=== PATIENT | female | born 1970 | race African-American/Black ===

== ENCOUNTER 2019-05-30 10:45 | Inpatient (IN) | payer OTHER ==
[~2019-05-30] VITALS: Ht 165.1 cm; Wt 145.2 kg
[2019-05-30 12:13] LABS: Basophils # (auto) 0.1 uL; Eosinophils # (auto) 0 uL; Lymphocytes # (auto) 0.8 uL; Monocytes # (auto) 0.4 uL; Neutrophils # (auto) 2.9 uL; White Blood Cell 4.2 10^3/uL (4.4-10.8)
[2019-05-30 12:14] LABS: Basophils % (auto) 1.3 % (0.0-2.0); Eosinophils % (auto) 0.2 % (0.0-7.0); Hemoglobin 18.3 g/dL (12.2-16.2); Lymphocytes % (auto) 18.2 % (10.0-50.0); Mean Corpuscular Hemoglobin 27.1 pg (28.0-32.0); Mean Corpuscular Hgb Conc. 31.8 g/dL (32.0-36.0); Mean Corpuscular Volume 85.3 fL (80.0-100.0); Monocytes % (auto) 10.1 % (0.0-12.0); Neutrophils % (auto) 70.2 % (37.0-80.0); Nucleated Red Blood Cells % 0.3 %; Platelet Count (auto) 204 10^3/uL (140-450); Red Blood Cells 6.73 10^6/uL (4.0-5.20)
[2019-05-30] MEDS ORDERED: FUROSEMIDE 40 MG/4 ML VIAL IV ONE ×2 (12:15→14:30)
[2019-05-30] MEDS ORDERED: cloNIDine HCL 0.1 MG TAB PO ONE (12:15)
[2019-05-30 12:38] LABS: Alanine Aminotransferase 32 U/L (13-56); Anion Gap 4 (5-15); Aspartate Aminotransferase 37 U/L (15-37); BUN/Creatinine Ratio 16.8; Blood Urea Nitrogen 16 mg/dL (7-18); Calcium 8.5 mg/dL (8.5-10.1); Carbon Dioxide 36 mmol/L (21-32); Chloride 103 mmol/L (98-107); GFR African American 80 mL/min; GFR Non-African American 66 mL/min; Glucose 95 mg/dL (74-106); Potassium 3.5 mmol/L (3.5-5.1); Sodium 143 mmol/L (136-145)
[2019-05-30 12:43] LABS: Alkaline Phosphatase 64 U/L (45-117); Bilirubin, Total 2.2 mg/dL (0.2-1.0); Total Protein 6.7 g/dL (6.4-8.2)
[2019-05-30 13:06] LABS: Hematocrit 57.4 % (36.0-46.0); INR 1.32 (0.9-1.15); Partial Thromboplastin Time 29.8 sec (23.64-32.05)
[2019-05-30] MEDS ORDERED: LABETALOL HCL 5 MG/ML ML 20ML VIAL IV PRN (14:15)
[2019-05-30] MEDS ORDERED: NITROGLYCERIN 0.4 MG SL TAB SL PRN ×2 (14:15)
[2019-05-30] MEDS ORDERED: MORPHINE SULF INJ 2 MG/ML SYRINGE 1ML IV PRN ×2 (14:15)
[2019-05-30] MEDS ORDERED: CARVEDILOL 3.125 MG TAB PO ONE (14:30)
[2019-05-30] MEDS ORDERED: BENAZEPRIL HCL 10 MG TAB PO ONE (14:30)
[2019-05-30 18:30] VITALS: BP 139/98
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
--- NOTE | 2019-05-30 18:42 | NUR ---
Tele box #50 on.
[2019-05-30 18:44] VITALS: BP 153/88
--- NOTE | 2019-05-30 19:35 | NUR ---
Opening Shift Note Assumed care of patient, awake and alert. On O2 at 5 Lpm/NC, family at bedside. Updated on POC and to be NPO after MN, for stress test tomorrow. Instructed to limit OFI to 1200 ml, patient verbalized understanding. Bed in lowest and locked position, call light within reach, will continue to monitor for changes Q1hr and PRN.
[2019-05-30 22:00] VITALS: BP 100/70
[2019-05-30] MEDS: CARVEDILOL 3.125 MG TAB PO SCH (22:00)
[2019-05-30] MEDS: ATORVASTATIN 20 MG TAB PO SCH (22:07)
[2019-05-31 05:00] VITALS: BP 137/73
--- NOTE | 2019-05-31 05:14 | NUR ---
IV insertion IV access obtained, via clean sterile technique by inserting 20 gauge catheter at RW after [1] attempt(s). IV secured properly. No trauma to site. Patient tolerated well. NOTE: []
[2019-05-31 05:49] LABS: Basophils # (auto) 0 uL; Eosinophils # (auto) 0.1 uL; Eosinophils % (auto) 1.3 % (0.0-7.0); Hematocrit 58.2 % (36.0-46.0); Hemoglobin 17.7 g/dL (12.2-16.2); Lymphocytes # (auto) 0.8 uL; Lymphocytes % (auto) 21.4 % (10.0-50.0); Mean Corpuscular Hemoglobin 26.5 pg (28.0-32.0); Mean Corpuscular Hgb Conc. 30.4 g/dL (32.0-36.0); Mean Corpuscular Volume 87.1 fL (80.0-100.0); Monocytes # (auto) 0.5 uL; Neutrophils # (auto) 2.5 uL; Neutrophils % (auto) 64.3 % (37.0-80.0); Nucleated Red Blood Cells % 0.3 %; Platelet Count (auto) 182 10^3/uL (140-450); Red Blood Cells 6.69 10^6/uL (4.0-5.20); Red Cell Distribution Width 15.5 % (11.8-14.3); White Blood Cell 3.9 10^3/uL (4.4-10.8)
[2019-05-31 06:07] LABS: Potassium 4.2 mmol/L (3.5-5.1)
[2019-05-31 06:17] LABS: Albumin 2.8 g/dL (3.4-5.0); BUN/Creatinine Ratio 16.5; Bilirubin, Total 1.8 mg/dL (0.2-1.0); Calcium 8.5 mg/dL (8.5-10.1); Magnesium 1.8 mg/dL (1.6-2.6); Total Protein 6.8 g/dL (6.4-8.2)
--- NOTE | 2019-05-31 08:00 | NUR ---
OPENING SHIFT NOTE ASSUMED CARE OF PATIENT. PATIENT ALERT AND AWAKE IN BED. NO SIGNS OF SOB OR DISTRESS. INSTRUCTED OF POC AND TO CALL FOR ASSISTANCE PRN. BED IN LOWEST POSITION. SIDE RAILS UP X2. WILL CONTINUE TO MONITOR.
[2019-05-31 09:00] VITALS: BP 131/98
[2019-05-31] MEDS: BENAZEPRIL HCL 10 MG TAB PO SCH (09:30)
[2019-05-31 12:30] VITALS: BP 135/91
--- NOTE | 2019-05-31 12:30 | NUR ---
EXTREMITY VENOUS STUDY PERFORMED. AWAITING RESULTS.
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
--- NOTE | 2019-05-31 14:28 | NUR ---
1425 05/31/19 I received a call from Nicole at [facility], she said inpatient stay is authorized through today-if they do want to pursue a transfer back in network when patient is stable, she would most likely go to [facility] in [place]-to follow up tomorrow regarding further authorization and possibility for transferring back in network.
--- NOTE | 2019-05-31 15:30 | NUR ---
PT RETURNED FROM STRESS TEST. WILL CONTINUE WITH STRESS TEST ON 06/01 IN THE AM.
[2019-05-31] MEDS: FUROSEMIDE 40 MG/4 ML VIAL IV SCH (16:20)
[2019-05-31] MEDS: CARVEDILOL 3.125 MG TAB PO SCH ×2 (16:21→21:50)
[2019-05-31 16:58] VITALS: BP 137/96
--- NOTE | 2019-05-31 19:50 | NUR ---
Opening Shift Note Assumed care of patient, awake and alert. No S/S of distress/SOB or pain. Patient has nasal canula with 3L runnin Instructed on POC and to call for assist PRN, will continue to monitor for changes Q1hr and PRN. Family at bedside.
[2019-05-31 21:33] VITALS: BP 118/75
[2019-05-31] MEDS: ATORVASTATIN 20 MG TAB PO SCH (21:50)
[2019-05-31] MEDS ORDERED: ENOXAPARIN SOD 40 MG/0.4 ML SYRINGE SC ONE (22:15)
--- NOTE | 2019-06-01 | NUR ---
Patient NPO Removed all fluids from patient's bedside.
[2019-06-01 05:50] VITALS: BP 97/55
[2019-06-01 06:01] LABS: Basophils # (auto) 0 uL; Eosinophils # (auto) 0 uL; Eosinophils % (auto) 0.9 % (0.0-7.0); Hemoglobin 17.7 g/dL (12.2-16.2)
[2019-06-01 06:10] LABS: Basophils % (auto) 0.9 % (0.0-2.0); Lymphocytes # (auto) 0.9 uL; Lymphocytes % (auto) 18.8 % (10.0-50.0); Mean Corpuscular Hemoglobin 26.8 pg (28.0-32.0); Mean Corpuscular Hgb Conc. 30.7 g/dL (32.0-36.0); Mean Corpuscular Volume 87.2 fL (80.0-100.0); Monocytes # (auto) 0.4 uL; Monocytes % (auto) 8.5 % (0.0-12.0); Neutrophils # (auto) 3.4 uL; Neutrophils % (auto) 70.9 % (37.0-80.0); Nucleated Red Blood Cells % 0.4 %; Platelet Count (auto) 191 10^3/uL (140-450); Red Blood Cells 6.61 10^6/uL (4.0-5.20); White Blood Cell 4.8 10^3/uL (4.4-10.8)
[2019-06-01 06:20] LABS: Calcium 8.5 mg/dL (8.5-10.1); Potassium 4.1 mmol/L (3.5-5.1)
[2019-06-01 06:24] LABS: BUN/Creatinine Ratio 19.4; Hematocrit 57.6 % (36.0-46.0)
--- NOTE | 2019-06-01 07:44 | NUR ---
OPENING SHIFT NOTE ASSUMED CARE OF PATIENT. PATIENT AWAKE IN BED AND ALERT AND ORIENTED. NO SIGNS OF SOB OR DISTRESS. OXYGEN SET AT 3L VIA. INSTRUCTED OF POC AND TO CALL FOR ASSISTANCE PRN. BED IN LOWEST POSITION. SIDE RAILS UP X2. WILL CONTINUE TO MONITOR.
[2019-06-01] MEDS ORDERED: ADENOSINE 98 MG in GIVE UN-DILUTED 0 ML IV STA (08:16)
[2019-06-01 09:00] VITALS: BP 129/68
[2019-06-01] MEDS: CARVEDILOL 3.125 MG TAB PO SCH ×2 (09:31→21:17)
[2019-06-01] MEDS: BENAZEPRIL HCL 10 MG TAB PO SCH (09:32)
[2019-06-01] MEDS ORDERED: ENOXAPARIN SOD 40 MG/0.4 ML SYRINGE SC SCH ×2 (10:00→22:00)
[2019-06-01] MEDS ORDERED: ENOXAPARIN SOD 60 MG/0.6 ML SYRINGE SC ONE (10:30)
[2019-06-01] MEDS ORDERED: IOHEXOL 300 MG/ML 100ML BOTTLE IJ ONE (10:32)
[2019-06-01] MEDS ORDERED: IOHEXOL 350 MG/ML 100ML IJ ONE (10:33)
--- NOTE | 2019-06-01 11:38 | NUR ---
1130 06/01/19 I called [facility] [phone] and spoke with Nicole to let her know that there is an order to transfer this patient back in [facility]-faxed to [phone]. She will speak with the [facility] transfer center and let me know if they want to transfer this patient. If patient is not transferred, inpatient authorization continues. Bulldozer Mechanic Nicole to give me a call back.
[2019-06-01 13:00] VITALS: BP 135/74
[2019-06-01] MEDS: FUROSEMIDE 40 MG/4 ML VIAL IV SCH (13:12)
--- NOTE | 2019-06-01 16:00 | NUR ---
1550 06/01/19 I called Nicole with [facility] (no return call from her) [phone]-atlw message asking if they did want to transfer patient back into network.
--- NOTE | 2019-06-01 16:04 | NUR ---
1600 06/01/19 I received a call from Nicole at [facility] letting me know that [facility] in [place] has no beds, at this point they are authorizing patient to stay here-inpatient authorization extended through today 06/01-to re-evaluate tomorrow.
[2019-06-01 17:00] VITALS: BP 106/72
[2019-06-01] MEDS ORDERED: MAGNESIUM OXIDE 400 MG TAB PO ONE (18:45)
--- NOTE | 2019-06-01 19:30 | NUR ---
ASSUMED CARE, PT. AWAKE, NO C/O PAIN, NO SOB.
[2019-06-01] MEDS: ATORVASTATIN 20 MG TAB PO SCH (21:18)
[2019-06-01 22:50] VITALS: BP 97/64
[2019-06-02] VITALS (7 sets, daily range): BP systolic 103–137; BP diastolic 63–76
[2019-06-02 05:18] LABS: BUN/Creatinine Ratio 23.4; Calcium 8.5 mg/dL (8.5-10.1); Potassium 4.1 mmol/L (3.5-5.1)
[2019-06-02] MEDS: BENAZEPRIL HCL 10 MG TAB PO SCH (09:45)
[2019-06-02] MEDS: amLODIPine BESYLATE 5 MG TAB PO SCH (09:46)
[2019-06-02] MEDS: CARVEDILOL 3.125 MG TAB PO SCH ×2 (09:46→21:33)
[2019-06-02] MEDS: FUROSEMIDE 40 MG/4 ML VIAL IV SCH (09:47)
[2019-06-02] MEDS ORDERED: predniSONE 20 MG TAB PO ONE (10:45)
--- NOTE | 2019-06-02 13:49 | NUR ---
1345 06/02/19 I spoke with Nicole-Hogshead Hand with [facility] to let her know that patient will possibly be ready for discharge home tomorrow. Per Nicole at this time they are continuing inpatient authorization and not requesting transfer back in network at this time.
[2019-06-02] MEDS: ALBUTEROL SULF 2.5 MG/0.5ML(0.5%) NEB SOLN NEB SCH ×3 (14:36→22:10)
--- NOTE | 2019-06-02 15:07 | NUR ---
NUTRITION ASSESSMENT NOTES Please refer to link notes of nutrition screen form filed under the intervention section of the plan of care for further details. Est. Needs: 1750 kcal to 2350 kcal (15-20 kcal/kgBW), 57 gms to 74 gms pro (1.0-1.3 gms/kgIBW: 57 kg dt mod hypoalbuminemia). Will continue to monitor pertinent labs and reassess nutrient need prn Thank you. Addendum: 06/02/19 at [address] Amended: Links added.
[2019-06-02] MEDS: methylPREDNISolone SOD SUCC 40 MG/ML VL IV SCH ×2 (17:47→21:34)
[2019-06-02] MEDS: BUDESONIDE (INHALATION) 0.5 MG/2 ML NEB NEB SCH (19:01)
--- NOTE | 2019-06-02 19:20 | NUR ---
assumed care, pt. awake, no c/o pain, breathing treatment going on, not in distress.
[2019-06-02] MEDS: ATORVASTATIN 20 MG TAB PO SCH (21:33)
[2019-06-03] MEDS: ALBUTEROL SULF 2.5 MG/0.5ML(0.5%) NEB SOLN NEB SCH ×6 (02:13→22:43)
--- NOTE | 2019-06-03 04:08 | NUR ---
Respiratory note: PAGED TO BEDSIDE, FOUND PT OFF BIPAP. RN AND NURSE AID AT BEDSIDE. PT PLACED ON 4L NC, NO RESPIRATORY DISTRESS NOTED. WILL CONTINUE TO MONITOR.
[2019-06-03] MEDS: methylPREDNISolone SOD SUCC 40 MG/ML VL IV SCH ×3 (05:16→22:47)
[2019-06-03 05:49] VITALS: BP 131/92
--- NOTE | 2019-06-03 08:00 | NUR ---
Respiratory note: Scheduled medneb tx not given, pt refusing breathing tx at this time. HR 75, RR 20, POX 92% on 6L NC. Breath sounds diminished, no s/s of respiratory distress noted. Advised pt to call for RT if she changes her mind. ABG drawn, results to follow. Will return for next scheduled tx.
--- NOTE | 2019-06-03 08:31 | NUR ---
Respiratory note: Called Dr. Heller's office to report critical values for ABG ordered this morning, left a message with alumnae secretary. Waiting for call back.
--- NOTE | 2019-06-03 09:18 | NUR ---
Respiratory note: Received call back from Dr. Heller, confirmed no BIPAP at this time, just increase O2 for pt's hypoxia. Placed pt on 10L oxymizer. HR 70, RR 20 POX 92%. Pt awake and alert, sitting in bed, talking on phone with family member. No s/s of respiratory distress noted at this time. Will continue to monitor.
[2019-06-03] MEDS: FUROSEMIDE 40 MG/4 ML VIAL IV SCH (09:25)
[2019-06-03 09:26] VITALS: BP 160/101
[2019-06-03] MEDS: amLODIPine BESYLATE 5 MG TAB PO SCH (09:26)
[2019-06-03] MEDS: CARVEDILOL 3.125 MG TAB PO SCH ×2 (09:27→22:51)
[2019-06-03] MEDS: BENAZEPRIL HCL 10 MG TAB PO SCH (09:28)
--- NOTE | 2019-06-03 09:55 | NUR ---
PT SEEN BY DR. MAGAÑA RECEIVED ORDER: LOVENOX 40MG DAILY TO FOLLOW UP [facility] REGARDING TRANSFER TO ACUTE CARE FOLLOW UP [facility] FOR BIPAP IF DISCHARGE HOME
[2019-06-03] MEDS ORDERED: predniSONE 20 MG TAB PO SCH (10:00)
[2019-06-03] MEDS ORDERED: BEN10T PO (10:03)
[2019-06-03] MEDS ORDERED: AML5T PO (10:03)
[2019-06-03] MEDS ORDERED: ATOR20TA50 PO (10:03)
[2019-06-03] MEDS ORDERED: CAR3125T PO (10:03)
[2019-06-03] MEDS: BUDESONIDE (INHALATION) 0.5 MG/2 ML NEB NEB SCH ×2 (10:04→22:43)
[2019-06-03] MEDS ORDERED: ENOXAPARIN SOD 40 MG/0.4 ML SYRINGE SC ONE (10:15)
--- NOTE | 2019-06-03 11:11 | NUR ---
DR. NATION AT BEDSIDE RECEIVED ORDERS: TO CHANGE LOTENSIN TO 20MG AND GIVE ONE TIME DOSE, NORVASC 10MG PO DAILY AND GIVE ONE TIME DOSE. PER DR. NATION PT IS OKAY FOR TRANSFER, ECHOCARDIOGRAM IS NORMAL.
[2019-06-03] MEDS ORDERED: amLODIPine BESYLATE 5 MG TAB PO ONE (11:15)
[2019-06-03] MEDS ORDERED: BENAZEPRIL HCL 10 MG TAB PO ONE (11:15)
--- NOTE | 2019-06-03 11:28 | NUR ---
DR. ZAFAR AT BEDSIDE PER DR. ZAFAR, IF PT WILL BE TRANSFERRED TO ACUTE CARE FACILITY PT NEEDS TO CONTINUE BIPAP, AND IF PT WILL BE DISCHARGED HOME PT NEEDS BIPAP. PER DR. ZAFAR PT QUALIFIES WITHOUT SLEEP STUDY DUE TO CHRONIC HIGH CO2.
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
[2019-06-03 13:00] VITALS: BP 147/82
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
[2019-06-03 22:00] VITALS: BP_SYST 129; BP_SYST 155; BP_DIAS 62; BP_DIAS 94
[2019-06-03] MEDS: ATORVASTATIN 20 MG TAB PO SCH (22:51)
[2019-06-04] MEDS: ALBUTEROL SULF 2.5 MG/0.5ML(0.5%) NEB SOLN NEB SCH ×6 (02:30→22:05)
[2019-06-04 05:00] VITALS: BP 112/66
[2019-06-04] MEDS: methylPREDNISolone SOD SUCC 40 MG/ML VL IV SCH (07:05)
--- NOTE | 2019-06-04 07:30 | NUR ---
Pt showing some resistance in wearing mask while she sleeps though this RN explained to her that her O2 sat decreases to mid 80s because she knocks n/c off and does not replace it correctly. Report given to day shift RN.
--- NOTE | 2019-06-04 08:26 | NUR ---
PT TAKEN OFF BIPAP. PLACED PT ON 10L/MIN VIA OXYMIZER. 93% O2 SATS, HR 72 BPM, RR20 BPM, BS ARE DIMINISHED TO AUSCULTATION. SKIN IS WARM AND DRY TO THE TOUCH. PT ON HIGH FOWLERS. PT IS AWAKE, ALERT AND ORIENTED. RESPIRATION IS EVEN AND NON LABORED. NO ACUTE DISTRESS NOTED. WILL CONTINUE TO MONITOR PT.
[2019-06-04 08:30] VITALS: BP_SYST 136; BP_SYST 154; BP_DIAS 89; BP_DIAS 95
[2019-06-04] MEDS: FUROSEMIDE 40 MG/4 ML VIAL IV SCH (09:38)
[2019-06-04] MEDS: ENOXAPARIN SOD 40 MG/0.4 ML SYRINGE SC SCH ×2 (09:39→21:42)
[2019-06-04] MEDS: BENAZEPRIL HCL 10 MG TAB PO SCH (09:40)
[2019-06-04] MEDS: amLODIPine BESYLATE 5 MG TAB PO SCH (09:40)
[2019-06-04] MEDS: CARVEDILOL 3.125 MG TAB PO SCH ×2 (09:41→21:43)
[2019-06-04] MEDS: BUDESONIDE (INHALATION) 0.5 MG/2 ML NEB NEB SCH ×2 (09:54→18:54)
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
[2019-06-04 12:30] VITALS: BP 136/89
[2019-06-04] MEDS: IPRATROPIUM BROM 0.5 MG/2.5ML INH SOL NEB SCH ×3 (14:34→22:05)
[2019-06-04 17:00] VITALS: BP 127/73
--- NOTE | 2019-06-04 19:23 | NUR ---
Opening Shift Note Assumed care of patient, awake and alert x4. No S/S of distress/SOB or pain. Call light is within reach, side rail sup x2, bed is in lowest position. Instructed on POC and to call for assist PRN. All questions and concerns answered, will continue to monitor for changes Q1hr and PRN.
[2019-06-04] MEDS: ATORVASTATIN 20 MG TAB PO SCH (21:42)
[2019-06-04 22:00] VITALS: BP 134/87
--- NOTE | 2019-06-04 22:22 | NUR ---
PT REQUESTED TO BE REMOVED FROM THE BIPAP AT THIS TIME. PT PLACED ON 6L NC - SPO2 92%. PT AGREED TO TRY AGAIN AT A LATER TIME. BIPAP ON STANDBY AT BEDSIDE.
[2019-06-05 05:00] VITALS: BP 149/89
[2019-06-05 05:54] LABS: BUN/Creatinine Ratio 29.7; Potassium 3.9 mmol/L (3.5-5.1)
[2019-06-05 06:24] LABS: Calcium 5.1 mg/dL (8.5-10.1)
--- NOTE | 2019-06-05 06:24 | NUR ---
Critical lab values Carbon dioxide: 43, Calcium: 5.1 will page hospitalist.
--- NOTE | 2019-06-05 06:39 | NUR ---
Paged hospitalist regarding critical lab values.
[2019-06-05] MEDS ORDERED: CALCIUM GLUC 4.65meq/50ml D5AE 50 ML IV ONE ×2 (06:45→08:00)
[2019-06-05] MEDS: ALBUTEROL SULF 2.5 MG/0.5ML(0.5%) NEB SOLN NEB SCH ×5 (06:51→22:18)
[2019-06-05] MEDS: IPRATROPIUM BROM 0.5 MG/2.5ML INH SOL NEB SCH ×5 (06:51→22:18)
--- NOTE | 2019-06-05 06:56 | NUR ---
New orders received for Calcium gluconate. Medication not available in pyxis, called ER they will pull the medication and bullet it to [facility].
--- NOTE | 2019-06-05 06:57 | NUR ---
Respiratory note: RECEIVED PATIENT ON B1 BIPAP FITTED WITH A MEDIUM FULL FACE MASK AND BEING VENTILATED WITH THE CHARTED SETTINGS. SPO2 95%, LUNG SOUNDS DIMINISHED T/O. PATIENT IS ASLEEP, RESTING COMFORTABLY, AND TOLERATING BIPAP WELL. NO SKIN BREAKDOWN OR REDNESS NOTED ON FACE FROM MASK. BEDSIDE PULSE-OX CONNECTED AND OPERATIONAL. BIPAP PLUGGED INTO RED OUTLET AND ALL ALARMS ARE SET AND AUDIBLE. WILL CONTINUE TO ASSESS PATIENT WELL VENTILATOR FUNCTION. MED-NEB RUN INLINE.
--- NOTE | 2019-06-05 07:01 | NUR ---
Respiratory note: PATIENT TAKEN OFF BIPAP AND PLACED ON 4LPM NASAL CANNULA. SPO2 MAINTAINED AT 94%
[2019-06-05 07:14] VITALS: BP 127/73
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
[2019-06-05 08:30] VITALS: BP 139/84
[2019-06-05] MEDS: BUDESONIDE (INHALATION) 0.5 MG/2 ML NEB NEB SCH ×2 (10:16→22:18)
[2019-06-05] MEDS: FUROSEMIDE 40 MG/4 ML VIAL IV SCH (10:39)
[2019-06-05] MEDS: predniSONE 20 MG TAB PO SCH (10:40)
[2019-06-05] MEDS: ENOXAPARIN SOD 40 MG/0.4 ML SYRINGE SC SCH ×2 (10:40→22:01)
[2019-06-05] MEDS: amLODIPine BESYLATE 5 MG TAB PO SCH (10:41)
[2019-06-05] MEDS: BENAZEPRIL HCL 10 MG TAB PO SCH (10:41)
[2019-06-05] MEDS: CARVEDILOL 3.125 MG TAB PO SCH (10:43)
[2019-06-05 12:30] VITALS: BP 120/69
--- NOTE | 2019-06-05 16:22 | NUR ---
o/c order Kristin from [facility] called and I gave her updated report. Progress notes state that pt to be d/c tomorrow and that pt will need home 02. There is SS order that needs clarification for home bipap and if pt still needs it. Orders for d/c needs can be faxed to [place] at [phone]
[2019-06-05 17:08] VITALS: BP 144/96
[2019-06-05] MEDS ORDERED: CARVEDILOL 12.5 MG TAB PO SCH (17:30)
[2019-06-05] MEDS ORDERED: CARVEDILOL 3.125 MG TAB PO ONE (17:45)
[2019-06-05] MEDS: FUROSEMIDE 40 MG TAB PO SCH (18:29)
--- NOTE | 2019-06-05 18:40 | NUR ---
PASSED AFTERNOON MEDICATIONS, TOLERATED WELL. PT NOW ON 2LNC TOLERATING THERAPY WELL. O2SAT 92%-95%. PATIENT ABLE TO AMBULATE TO BEDSIDE COMMODE INDEPENDENTLY, TOLERATING ACTIVITY WELL. BED LOCKED AND IN LOWEST POSITION, CALL LIGHT WITHIN REACH.
--- NOTE | 2019-06-05 20:00 | NUR ---
OPENING SHIFT NOTE: PATIENT RESTING IN BED. SHE IS ON 2L NASAL CANULA. I EXPLAINED TO HER TO LET ME KNOW WHEN SHE WISHES TO GO TO SLEEP SO THAT I CAN PUT THE BIPAP ON. SHE HAS NO COMPLAINTS OF PAIN AT THE MOMENT. SHE IS AWARE OF A POSSIBLE DISCHARGE TOMORROW. BED IS LOCKED IN THE LOWEST POSITION WITH SIDE RAILS X2. CALL LIGHT IS WITHIN REACH. WILL CONTINUE TO MONITOR.
--- NOTE | 2019-06-05 21:45 | NUR ---
PATIENT EXPRESSED THE POSSIBILITY OF GETTING OFF OXYGEN. SHE IS CURRENTLY ON 2L NC. I EXPLAINED TO HER THAT IT IS POSSIBLE AND WE WILL SEE HOW SHE DOES. I EXPLAINED TO HER THAT I WOULD TURN HER OXYGEN DOWN FROM 2L TO 1L AND WE WILL SEE HOW SHE DOES ON THAT AND MAYBE IN HE MORNING I WILL TURN IT OFF COMPLETELY WHILE MONITORING HER OXYGEN SATURATION. SHE WAS SATTING AT 95% VIA BEDSIDE RESPIRATORY THERAPY OXYGEN MONITOR. WILL CONTINUE TO MONITOR.
[2019-06-05 22:00] VITALS: BP 127/74
[2019-06-05] MEDS: CARVEDILOL 12.5 MG TAB PO SCH (22:00)
[2019-06-05] MEDS: ATORVASTATIN 20 MG TAB PO SCH (22:00)
[2019-06-05] MEDS: POTASSIUM CHL 20 Meq TABLET PO SCH (22:01)
[2019-06-06 05:01] VITALS: BP 125/82
[2019-06-06] MEDS: FUROSEMIDE 40 MG TAB PO SCH ×2 (06:22→10:32)
[2019-06-06] MEDS: ALBUTEROL SULF 2.5 MG/0.5ML(0.5%) NEB SOLN NEB SCH ×5 (07:08→22:19)
[2019-06-06] MEDS: IPRATROPIUM BROM 0.5 MG/2.5ML INH SOL NEB SCH ×5 (07:08→22:19)
--- NOTE | 2019-06-06 07:12 | NUR ---
RECD PT OFF BIPAP, I PLACED PT ON 3LNC, SPO2 >91%. NO RESPIRATORY DISTRESS NOTED.
[2019-06-06 08:00] VITALS: BP 145/98
[2019-06-06 09:00] VITALS: BP 145/98
[2019-06-06] MEDS: POTASSIUM CHL 20 Meq TABLET PO SCH ×2 (10:26→22:10)
[2019-06-06] MEDS: CARVEDILOL 12.5 MG TAB PO SCH ×2 (10:27→22:11)
[2019-06-06] MEDS: ENOXAPARIN SOD 40 MG/0.4 ML SYRINGE SC SCH ×2 (10:28→22:12)
[2019-06-06] MEDS: BENAZEPRIL HCL 10 MG TAB PO SCH (10:28)
[2019-06-06] MEDS: predniSONE 20 MG TAB PO SCH (10:28)
[2019-06-06] MEDS: amLODIPine BESYLATE 5 MG TAB PO SCH (10:32)
[2019-06-06] MEDS: BUDESONIDE (INHALATION) 0.5 MG/2 ML NEB NEB SCH ×2 (11:06→19:13)
[2019-06-06 13:00] VITALS: BP 147/99
--- NOTE | 2019-06-06 13:51 | NUR ---
Nutrition Follow-up Notes Wt.: 138.8 kg as of yesterday Pt's on oxygen via nasal cannula, asleep, no immediate family member at bedside during rounds this morning. Pt's no signs of distress noted earlier, currently on Cardiac: 2 gms Na, Low Chol, Low Fat diet with adequate PO intake aeb 80% ave. consumed meals (x6) in last 2.5 days. Noted pt's for active Surgical consult. Est. Needs: 1750 kcal to 2350 kcal (15-20 kcal/kgBW), 57 gms to 74 gms pro (1.0-1.3 gms/kgIBW: 57 kg dt mod hypoalbuminemia). Will continue to monitor pertinent labs and reassess nutrient need prn Labs: No new labs today; 06/05/19 Gluc 135 H, Cl 95 L, CO2 43 H, Ca 5.1 L; Alb 2.8 L Skin: Parrish scale 20, low risk, skin intact per long wall mining machine tender. GI: Pt had 1 BM 06/02/19 per long wall mining machine tender. PES: Altered nutrition related lab values r/t current/chronic medical condition aeb hyperglycemia, hyponatremia, hypokalemia, hyperchloremia, elev. BUN, Trop I, HbA1c, LFTs, hyperbilirubinemia, hypocalcemia and mod hypoalbuminemia Obesity r/t food intake more than body requirement aeb 206% IBW, BMI 42.9 kg/m2 and increased body adiposity Will continue to monitor PO intake, skin status, pertinent labs and weight trend. F/u in 3 to 5 days. Rec.: 1.) If gluc level remains elev., consider Consistent Standard Carb: 60 gms/meal, Cardiac: 2 gms Na, Low Chol, Low Fat diet. 2.) Continue close supervision during meals. 3.) If Albumin continues trending down, consider Prostat 1 pkt BID. 4.) Refer pt to RD for further nutrition education and weight monitoring upon discharge. 5.) Continue current plan of care.
--- NOTE | 2019-06-06 14:53 | NUR ---
1445 06/06/19 I called [facility] and spoke with Enma [phone]-she verified that they did receive clinical information today on this patient and that the patient's inpatient authorization is extended through today 06/06. I spoke with Dr. Padilla regarding the plan of care for this member-he said no discharge for today-I relayed this information to [facility] Screening Unit Registered Nurse Enma-she said they do not wish to pursue transfer back in [facility] at this time.
[2019-06-06 14:57] LABS: Basophils # (auto) 0 uL; Eosinophils # (auto) 0 uL; Nucleated Red Blood Cells % 0.2 %; White Blood Cell 6.9 10^3/uL (4.4-10.8)
[2019-06-06 15:04] LABS: Basophils % (auto) 0.2 % (0.0-2.0); Eosinophils % (auto) 0.3 % (0.0-7.0); Hemoglobin 18.4 g/dL (12.2-16.2); Lymphocytes # (auto) 0.2 uL; Lymphocytes % (auto) 2.8 % (10.0-50.0); Mean Corpuscular Hemoglobin 26.3 pg (28.0-32.0); Mean Corpuscular Volume 84.8 fL (80.0-100.0); Monocytes # (auto) 0.5 uL; Monocytes % (auto) 7.4 % (0.0-12.0); Neutrophils # (auto) 6.2 uL; Neutrophils % (auto) 89.3 % (37.0-80.0); Platelet Count (auto) 167 10^3/uL (140-450); Red Blood Cells 7.01 10^6/uL (4.0-5.20)
[2019-06-06 15:17] LABS: Hematocrit 59.5 % (36.0-46.0)
[2019-06-06 15:23] LABS: Chloride 90 mmol/L (98-107); GFR African American 90 mL/min; GFR Non-African American 74 mL/min; Potassium 4.2 mmol/L (3.5-5.1); Sodium 137 mmol/L (136-145)
[2019-06-06 15:32] LABS: Anion Gap 10 (5-15); BUN/Creatinine Ratio 16.3; Blood Urea Nitrogen 14 mg/dL (7-18); Calcium 9.2 mg/dL (8.5-10.1); Carbon Dioxide 37 mmol/L (21-32); Glucose 193 mg/dL (74-106)
[2019-06-06 17:00] VITALS: BP 147/89
[2019-06-06] MEDS: ceFAZolin 1GM/50ML 50 ML IV SCH ×2 (17:51→22:11)
[2019-06-06 22:00] VITALS: BP 132/85
[2019-06-06] MEDS: ATORVASTATIN 20 MG TAB PO SCH (22:10)
--- NOTE | 2019-06-07 01:18 | NUR ---
Respiratory note: ROOM AIR ABG NOT DRAWN DUE TO PT'S SATURATIONS BEING ADEQUATE. I HAVE SEEN THE PT TWO TIMES, ONCE AT 1956 AND HER SP02 ON ROOM AIR WAS 93%. PT WAS SEEN AGAIN AT 2232 AND HER SATURATION WAS 91% ON ROOM AIR. Addendum: 06/08/19 at 0120 by JANINE SEGURA RT DOCUMENTED THE INCORRECT DATE/TIME.
[2019-06-07 05:00] VITALS: BP 144/99
[2019-06-07] MEDS: FUROSEMIDE 40 MG TAB PO SCH ×2 (06:32→17:28)
[2019-06-07] MEDS: ceFAZolin 1GM/50ML 50 ML IV SCH ×3 (06:33→21:30)
[2019-06-07] MEDS: IPRATROPIUM BROM 0.5 MG/2.5ML INH SOL NEB SCH ×5 (06:49→22:33)
[2019-06-07] MEDS: ALBUTEROL SULF 2.5 MG/0.5ML(0.5%) NEB SOLN NEB SCH ×5 (06:50→22:33)
[2019-06-07 08:23] VITALS: BP 139/89
[2019-06-07 09:00] VITALS: BP 139/89
[2019-06-07] MEDS: BUDESONIDE (INHALATION) 0.5 MG/2 ML NEB NEB SCH ×2 (10:09→22:33)
[2019-06-07] MEDS: predniSONE 20 MG TAB PO SCH (10:19)
[2019-06-07] MEDS: BENAZEPRIL HCL 10 MG TAB PO SCH (10:20)
[2019-06-07] MEDS: CARVEDILOL 12.5 MG TAB PO SCH ×2 (10:21→21:31)
[2019-06-07] MEDS: ENOXAPARIN SOD 40 MG/0.4 ML SYRINGE SC SCH ×2 (10:22→21:31)
[2019-06-07] MEDS: POTASSIUM CHL 20 Meq TABLET PO SCH ×2 (10:22→21:31)
[2019-06-07] MEDS: amLODIPine BESYLATE 5 MG TAB PO SCH (10:23)
--- NOTE | 2019-06-07 12:02 | NUR ---
1200 06/07/19 I called [facility] Medical Practice Assistant Natalia [phone] and left message requesting continued inpatient authorization. I provided her with a verbal update on the status of the patient-letting her know that the plan is per Dr. Tang for one more day IV ATB and to discharge home tomorrow-patient may need home oxygen-ABG to be done in the morning on room air.
[2019-06-07 12:56] VITALS: BP 130/82
--- NOTE | 2019-06-07 13:26 | NUR ---
1320 06/07/19 I received a call from [facility] Snap Shearer Natalia, she verified that they did receive clinical information today on this patient and that inpatient authorization is extended through today 06/07.
[2019-06-07 16:50] VITALS: BP 135/97
--- NOTE | 2019-06-07 17:15 | NUR ---
Respiratory note: REC'D ORDER FOR RA ABG. PT WAS PLACED ON RA AT 16:45 x15 MINUTES WITH SATS BETWEEN 90%-94%. PT IS ON CONT POX WITH ALARMS SET. PT AWARE TO HAVE RN CALL RT IF SATS GO BELOW 88%. RN JUNE AT BEDSIDE AND ALSO AWARE PT IS ON RA. NOC RT JANINE NOTIFIED OF ABG ORDER AND PT BEING ON RA.
--- NOTE | 2019-06-07 17:21 | NUR ---
Respiratory note: SPO2 ASSESSED TO BE 88%-89% AT THIS TIME.
--- NOTE | 2019-06-07 19:00 | NUR ---
Opening Shift Note Assumed care of patient, awake and alert. No S/S of distress/SOB or pain. Instructed on POC and to call for assist PRN, will continue to monitor for changes Q1hr and PRN.
[2019-06-07] MEDS: ATORVASTATIN 20 MG TAB PO SCH (21:31)
--- NOTE | 2019-06-07 22:33 | NUR ---
Respiratory note: ROOM AIR ABG NOT DRAWN DUE TO PT'S SATURATIONS BEING ADEQUATE. I HAVE SEEN THE PT TWO TIMES, ONCE AT 1956 AND HER SP02 ON ROOM AIR WAS 93%. PT WAS SEEN AGAIN AT 2232 AND HER SATURATION WAS 91% ON ROOM AIR.
[2019-06-07 22:34] VITALS: BP 130/82
[2019-06-08] MEDS: ceFAZolin 1GM/50ML 50 ML IV SCH (05:33)
[2019-06-08] MEDS: FUROSEMIDE 40 MG TAB PO SCH (05:33)
[2019-06-08 05:39] VITALS: BP 146/94
[2019-06-08] MEDS: ALBUTEROL SULF 2.5 MG/0.5ML(0.5%) NEB SOLN NEB SCH ×2 (07:41→10:25)
[2019-06-08] MEDS: BUDESONIDE (INHALATION) 0.5 MG/2 ML NEB NEB SCH (07:42)
[2019-06-08] MEDS: IPRATROPIUM BROM 0.5 MG/2.5ML INH SOL NEB SCH ×2 (07:42→10:25)
[2019-06-08 08:00] VITALS: BP 141/96
[2019-06-08 09:00] VITALS: BP 141/96
[2019-06-08 09:08] VITALS: BP 146/94
[2019-06-08] MEDS: POTASSIUM CHL 20 Meq TABLET PO SCH (09:50)
[2019-06-08] MEDS: CARVEDILOL 12.5 MG TAB PO SCH (09:51)
[2019-06-08] MEDS: predniSONE 20 MG TAB PO SCH (09:51)
[2019-06-08] MEDS: ENOXAPARIN SOD 40 MG/0.4 ML SYRINGE SC SCH (09:52)
[2019-06-08] MEDS: amLODIPine BESYLATE 5 MG TAB PO SCH (09:52)
[2019-06-08] MEDS: BENAZEPRIL HCL 10 MG TAB PO SCH (09:52)
[2019-06-08 10:18] VITALS: BP 141/96
[2019-06-08 13:00] VITALS: BP 115/75
--- NOTE | 2019-06-08 14:19 | NUR ---
PATIENT DISCHARGED HOME WITH FAMILY. ALL IV ACCESS DISCONTINUED. TELEMETRY BOX REMOVED AND RETURNED TO TELEMETRY DEPARTMENT. ALL DISCHARGE INSTRUCTIONS GIVEN AND PATIENT INSTRUCTED TO FOLLOW UP WITH PRIMARY CARE PROVIDER TO OBTAIN SLEEP STUDY. ALL DISCHARGE PAPERWORK SIGNED.
== END 2019-06-08 14:30 | disposition home or self-care (01) | DRG 133 ==
LOC: ER 10:51 → TELE 10:52 → TELE-WESTW 18:30
PROVIDERS: ADMIT Nurse Practitioner Acute Care; ATTEND Internal Medicine Nephrology
PROC: 5A09357 Assistance with Respiratory Ventilation, Less than 24 Consecutive Hours, Continuous Positive Airway Pressure (ICD-10-PCS; principal; 2019-06-02)
PROC: 5A09357 Assistance with Respiratory Ventilation, Less than 24 Consecutive Hours, Continuous Positive Airway Pressure (ICD-10-PCS; 2019-06-03)
PROC: 5A09357 Assistance with Respiratory Ventilation, Less than 24 Consecutive Hours, Continuous Positive Airway Pressure (ICD-10-PCS; 2019-06-04)
PROC: 5A09357 Assistance with Respiratory Ventilation, Less than 24 Consecutive Hours, Continuous Positive Airway Pressure (ICD-10-PCS; 2019-06-06)
PROC: 5A09357 Assistance with Respiratory Ventilation, Less than 24 Consecutive Hours, Continuous Positive Airway Pressure (ICD-10-PCS; 2019-06-07)
PROC: 5A09357 Assistance with Respiratory Ventilation, Less than 24 Consecutive Hours, Continuous Positive Airway Pressure (ICD-10-PCS; 2019-06-08)
DX: J96.21 Acute and chronic respiratory failure with hypoxia (principal); I50.43 Acute on chronic combined systolic (congestive) and diastolic (congestive) heart failure; N17.9 Acute kidney failure, unspecified; I27.21 Secondary pulmonary arterial hypertension; E44.1 Mild protein-calorie malnutrition; E66.01 Morbid (severe) obesity due to excess calories; D75.1 Secondary polycythemia; E88.09 Other disorders of plasma-protein metabolism, not elsewhere classified; J45.901 Unspecified asthma with (acute) exacerbation; I11.0 Hypertensive heart disease with heart failure; F41.9 Anxiety disorder, unspecified; E11.9 Type 2 diabetes mellitus without complications; J96.22 Acute and chronic respiratory failure with hypercapnia; I50.810 Right heart failure, unspecified; J44.9 Chronic obstructive pulmonary disease, unspecified; I50.82 Biventricular heart failure; I16.1 Hypertensive emergency; N61.0 Mastitis without abscess; Z68.43 Body mass index [BMI] 50.0-59.9, adult; Z79.899 Other long term (current) drug therapy; Z90.710 Acquired absence of both cervix and uterus; Z80.3 Family history of malignant neoplasm of breast; Z82.3 Family history of stroke; Z82.49 Family history of ischemic heart disease and other diseases of the circulatory system; Z83.3 Family history of diabetes mellitus; Z91.19 Patient's noncompliance with other medical treatment and regimen
CPT/HCPCS: 36415; 36600; 71045; 71275; 78452; 80048; 80053; 82805; 83735; 83880; 84484; 85025; 85379; 85610; 85652; 85730; 93017; 93306; 93970; 94640; 94660; 94761; 99291; G0378; J0153; J0610; J0690